=== PATIENT | female | born 1990 | race Native Hawaiian/Other Pacific Islander ===

== ENCOUNTER 2017-03-19 20:51 | Observation (INO) | payer OTHER ==
[2017-03-19 22:01] LABS: Appearance,Urine Cloudy (Clear); Bacteria,Urine Moderate /hpf; Bilirubin,Urine Negative (Negative); Blood,Urine Large (Negative); Color,Urine Light Red; Glucose,Urine (UA) Negative (Negative); Ketones,Urine 1+ (Negative); Leukocyte Esterase,Urine Negative (Negative); Mucus,Urine Many /hpf; Nitrite,Urine Negative (Negative); Protein,Urine 1+ (Negative); RBC,Urine >182 /hpf (0-5); Specific Gravity,Urine 1.026 (1.001-1.035); Squamous Epithelial Cell,Urine 12 /hpf (0-4); WBC,Urine 22 /hpf (0-5)
[2017-03-19 22:39] LABS: Basophils % (A) 0 %; Eosinophils # (A) 0.3 k/uL (0-0.7); Eosinophils % (A) 3 %; HGB 13.2 gm/dL (11.4-16.0); Lymphocytes # (A) 1.8 k/uL (1.0-4.8); Lymphocytes % (A) 22 %; MCHC 30.7 g/dL (31.0-37.0); MCV 94.4 fL (80.0-100.0); Mean Platelet Volume 7.7; Monocytes # (A) 0.4 k/uL (0-1.0); Monocytes % (A) 5 %; Neutrophils # (A) 5.8 k/uL (1.3-7.7); Neutrophils % (A) 69 %; Platelet Count 246 k/uL (150-450); RBC 4.56 m/uL (3.80-5.40); RDW 14.6 % (11.5-15.5); WBC 8.4 k/uL (3.8-10.6)
--- NOTE | 2017-03-19 23:10 | US ---
EXAMINATION TYPE: US OB <= 14 wk fetus DATE OF EXAM: 03/19/2017 COMPARISON: NONE CLINICAL HISTORY: vaginal bleeding. Pt states vaginal bleeding x 3 weeks, + test in ER EXAM PERFORMED: Transvaginal (TV) and Transabdominal (TA) EXAM MEASUREMENTS: GESTATIONAL AGE / DATING Physician Established: Not established Dates by LMP: (2 weeks/3 days) EDC: 12/07/2017 Dates by First Scan: no prior Dates by Current Scan: Possible 6wk 2day left ectopic MATERNAL ANATOMY Uterus: 7.2 x 5.2 x 5.3 cm Right Ovary: 3.6 x 1.9 x 3.5 cm Left Ovary: 3.0 x 1.9 x 2.8 cm Post CDS / Adnexa: Solid, vascular mass within left adnexa adjacent to left ovary= 3.0 x 1.7 x 2.0 cm / possible pole visualized, no cardiac activity Presence of free fluid: No Beta HcG (if available): Not available at this time IMPRESSION: Empty uterus. There is a complex mass in the left adnexa is probably a gestational sac with pole. There is no cardiac activity and this is consistent with demise at approximately 6 weeks 2 days gestation of an ectopic . The pole measures 5 mm.
--- NOTE | 2017-03-19 23:14 | ED ---
General Adult HPI - General Chief complaint: Vaginal Bleeding Stated complaint: Female Time Seen by Provider: 03/19/17 21:16 Source: patient Mode of arrival: ambulatory Limitations: no limitations - History of Present Illness Initial comments: Parrish is a female who presents to the ED today for evaluation of vaginal bleeding. Sharon reports that she had her normal period in January. In February she started her period on March 01. She reports that since that time she's experienced daily vaginal bleeding. She reports that she is using 2-3 tampons or pads per day and experiencing dark vaginal bleeding. She reports that the bleeding is similar in character to a. However it has persisted for nearly 3 weeks at this point. She reports a prior to this she was had regular periods lasting 4-7 days. She does report that her mother has a history of irregular periods and subsequently had to have a hysterectomy in her early 30s. Patient reports that she last saw her integrated specialist in October at which time she had a normal exam and was given a good bill of health. Patient does report that she is sexually active, she reports that she is in a monogamous relationship, the usually use condoms for control but she does admit to occasionally feeling to use any type of protection. At this time she does report that there is a possibility that she is . Patient states that her blood type is O+. She states that she is certain of this because she was recently looking of her previous medical record because her uncle is in need of a kidney transplant his blood type is O- and she was not compatible. She also reports she never received program and previous pregnancies. - Related Data Home Medications Medication Instructions Recorded Confirmed Naproxen Sodium [Midol] 220 mg PO Q12HR PRN 03/19/17 03/19/17 Allergies Allergy/AdvReac Type Severity Reaction Status Date / Time No Known Allergies Allergy Verified 03/19/17 21:16 Review of Systems ROS Statement: Those systems with pertinent positive or pertinent negative responses have been documented in the HPI. ROS Other: All systems not noted in ROS Statement are negative. Constitutional: Reports: fever Genitourinary: Reports: abnormal menses. Denies: dysuria, hematuria, discharge Neurological: Denies: headache, weakness Hematological/Lymphatic: Denies: easy bleeding, easy bruising Past Medical History Past Medical History: No Reported History Additional Past Medical History / Comment(s): Scoliosis, miscarriage 2012. History of Any Multi-Drug Resistant Organisms: None Reported Past Surgical History: Section Past Psychological History: No Psychological Hx Reported Smoking Status: Current every day smoker Past Alcohol Use History: Occasional Past Drug Use History: None Reported General Exam Limitations: no limitations General appearance: alert, in no apparent distress Head exam: Present: atraumatic, normocephalic Eye exam: Present: normal appearance, PERRL ENT exam: Present: normal exam Neck exam: Present: normal inspection Respiratory exam: Absent: respiratory distress Cardiovascular Exam: Present: regular rate, normal rhythm GI/Abdominal exam: Present: soft. Absent: distended Rectal exam: Present: deferred External exam: Present: normal external exam Speculum exam: Present: vaginal bleeding. Absent: tissue, laceration By manual exam: Present: normal by manual exam. Absent: cervical motion tenderness, adnexal tenderness, adnexal mass, uterine enlargement, uterine tenderness Extremities exam: Present: normal inspection Back exam: Present: normal inspection Neurological exam: Present: alert, oriented X3 Psychiatric exam: Present: normal affect, normal mood Skin exam: Present: warm, dry, normal color Course Vital Signs 03/19/17 03/19/17 20:53 22:42 Temperature 97.2 F L 98.5 F Pulse Rate 81 72 Respiratory 16 18 Rate Blood Pressure 139/80 142/80 O2 Sat by Pulse 100 100 Oximetry Medical Decision Making - Medical Decision Making Patient was seen and evaluated. Patient with nearly 3 weeks of continuous vaginal bleeding, no lightheadedness, no tachycardia. Bleeding is minimal using 2-4 pads per day. Patient has no history of menstrual irregularities however her mother does. Patiently not currently using any type of control, there is concern that she could be Urinalysis and urine ordered Urinalysis reveals gross hematuria, likely contamination as well as a positive test CBC and beta hCG were ordered Pelvic ultrasound ordered Pelvic US reveals a left adnexal ectopic with no heart beat - patient was advised - findings discussed with OB on-call who recommended the patient be placed in observation, nothing by mouth at midnight, repeat morning labs. Orderd were placed - Lab Data Result diagrams: 03/19/17 22:31 Lab Results 03/19/17 03/19/17 03/19/17 Range/Units 20:16 20:16 22:31 WBC 8.4 (3.8-10.6) k/uL RBC 4.56 (3.80-5.40) m/uL Hgb 13.2 (11.4-16.0) gm/dL Hct 43.0 (34.0-46.0) % MCV 94.4 (80.0-100.0) fL MCH 29.0 (25.0-35.0) pg MCHC 30.7 L (31.0-37.0) g/dL RDW 14.6 (11.5-15.5) % Plt Count 246 (150-450) k/uL Neutrophils % 69 % Lymphocytes % 22 % Monocytes % 5 % Eosinophils % 3 % Basophils % 0 % Neutrophils # 5.8 (1.3-7.7) k/uL Lymphocytes # 1.8 (1.0-4.8) k/uL Monocytes # 0.4 (0-1.0) k/uL Eosinophils # 0.3 (0-0.7) k/uL Basophils # 0.0 (0-0.2) k/uL HCG, Quant mIU/mL Urine Color Light Red Urine Appearance Cloudy H (Clear) Urine pH 6.0 (5.0-8.0) Ur Specific [place] 1.026 (1.001-1.035) Urine Protein 1+ H (Negative) Urine Glucose (UA) Negative (Negative) Urine Ketones 1+ H (Negative) Urine Blood Large H (Negative) Urine Nitrite Negative (Negative) Urine Bilirubin Negative (Negative) Urine Urobilinogen 2.0 (<2.0) mg/dL Ur Leukocyte Esterase Negative (Negative) Urine RBC >182 H (0-5) /hpf Urine WBC 22 H (0-5) /hpf Ur Squamous Epith Cells 12 H (0-4) /hpf Urine Bacteria Moderate H (None) /hpf Urine Mucus Many H (None) /hpf Urine HCG, Qual Detected (Not Detectd) 03/19/17 Range/Units 22:31 WBC (3.8-10.6) k/uL RBC (3.80-5.40) m/uL Hgb (11.4-16.0) gm/dL Hct (34.0-46.0) % MCV (80.0-100.0) fL MCH (25.0-35.0) pg MCHC (31.0-37.0) g/dL RDW (11.5-15.5) % Plt Count (150-450) k/uL Neutrophils % % Lymphocytes % % Monocytes % % Eosinophils % % Basophils % % Neutrophils # (1.3-7.7) k/uL Lymphocytes # (1.0-4.8) k/uL Monocytes # (0-1.0) k/uL Eosinophils # (0-0.7) k/uL Basophils # (0-0.2) k/uL HCG, Quant 267.1 mIU/mL Urine Color Urine Appearance (Clear) Urine pH (5.0-8.0) Ur Specific [place] (1.001-1.035) Urine Protein (Negative) Urine Glucose (UA) (Negative) Urine Ketones (Negative) Urine Blood (Negative) Urine Nitrite (Negative) Urine Bilirubin (Negative) Urine Urobilinogen (<2.0) mg/dL Ur Leukocyte Esterase (Negative) Urine RBC (0-5) /hpf Urine WBC (0-5) /hpf Ur Squamous Epith Cells (0-4) /hpf Urine Bacteria (None) /hpf Urine Mucus (None) /hpf Urine HCG, Qual (Not Detectd) Disposition Clinical Impression: Ectopic of ovary Disposition: ADMITTED IP TO THIS [facility] Condition: Good Referrals: None,Stated [Primary Care Provider] - 1-2 days Decision Date: 03/19/17 Decision Time: 23:36
[2017-03-19] MEDS ORDERED: NALOXONE 0.4 MG/ML 1 ML VIAL IV PRN (23:32)
[2017-03-20] MEDS: SODIUM CHLORIDE 0.9% 1,000 ML IV SCH ×2 (00:26→06:01)
[2017-03-20 01:09] LABS: ALT 44 U/L (9-52); AST 20 U/L (14-36); Albumin 4.1 g/dL (3.5-5.0); Alkaline Phosphatase 74 U/L (38-126); Anion Gap 12 mmol/L; Blood Urea Nitrogen 12 mg/dL (7-17); Calcium 9.6 mg/dL (8.4-10.2); Carbon Dioxide 22 mmol/L (22-30); Chloride 105 mmol/L (98-107); Glucose 100 mg/dL (74-99); Potassium 3.9 mmol/L (3.5-5.1); Sodium 139 mmol/L (137-145); Total Bilirubin 0.3 mg/dL (0.2-1.3); Total Protein 6.9 g/dL (6.3-8.2)
[2017-03-20] MEDS: ACETAMINOPHEN TAB 325 MG TAB PO PRN ×2 (01:56→07:07)
[2017-03-20 06:03] LABS: Anion Gap 8 mmol/L; Blood Urea Nitrogen 13 mg/dL (7-17); Calcium 9.2 mg/dL (8.4-10.2); Carbon Dioxide 25 mmol/L (22-30); Chloride 106 mmol/L (98-107); Glucose 87 mg/dL (74-99); INR 1.1 (<1.2); Partial Thromboplastin Time 25.1 sec (22.0-30.0); Potassium 3.8 mmol/L (3.5-5.1); Prothrombin Time 10.5 sec (9.0-12.0); Sodium 139 mmol/L (137-145)
[2017-03-20 06:09] LABS: Basophils % (A) 0 %; Eosinophils # (A) 0.2 k/uL (0-0.7); Eosinophils % (A) 3 %; HCT 37.9 % (34.0-46.0); HGB 12.3 gm/dL (11.4-16.0); Lymphocytes # (A) 2.4 k/uL (1.0-4.8); Lymphocytes % (A) 32 %; MCH 29.8 pg (25.0-35.0); MCHC 32.4 g/dL (31.0-37.0); MCV 91.9 fL (80.0-100.0); Monocytes # (A) 0.3 k/uL (0-1.0); Monocytes % (A) 4 %; Neutrophils # (A) 4.5 k/uL (1.3-7.7); Neutrophils % (A) 60 %; Platelet Count 226 k/uL (150-450); RBC 4.12 m/uL (3.80-5.40); WBC 7.5 k/uL (3.8-10.6)
[2017-03-20] MEDS ORDERED: METHOTREXATE SODIUM (PF) 25 MG/ML 2 ML VIAL IV ONE (08:31)
--- NOTE | 2017-03-20 08:31 | P.HPOB ---
History of Present Illness H&P Date: 03/20/17 Chief Complaint: Vaginal bleeding This is a 26-year-old 3 para 1011 woman with an LMP of 03/01/2017 who presents with several weeks of ongoing vaginal bleeding. She was found in the emergency room to have a positive test. Imaging reveals a 0.0 x 1.7 x 2.0 cm left adnexal mass adjacent to the left ovary consistent with an ectopic . There is no free fluid in the pelvis. Beta hCG is 267. Her blood type is O+. She complains of some ongoing bilateral lower abdominal cramping. She has no bowel or bladder complaints. Her bleeding she describes as a light to moderate. Flow without clot or debris. This morning she reports feeling hungry and is having some mild lower abdominal cramping. Her obstetrical history is significant for a primary low transverse section in 2013 and a spontaneous miscarriage of twins at approximately 20 weeks in 2011. She is not currently using anything for contraception. Her periods are typically regular every 30 days and last 5-7 days. Review of Systems Constitutional: Denies anorexia, Denies chills, Denies fever Cardiovascular: Denies chest pain, Denies shortness of breath, Denies syncope Respiratory: Denies cough Gastrointestinal: Reports abdominal pain, Denies change in bowel habits, Denies constipation, Denies nausea, Denies vomiting Genitourinary: Reports abnormal vaginal bleeding, Reports , Denies hematuria Menstruation: Reports as per HPI Musculoskeletal: Reports low back pain Integumentary: Denies rash Neurological: Denies headaches Psychiatric: Denies anxiety, Denies depression Hematologic/Lymphatic: Denies easy bleeding, Denies easy bruising Past Medical History Past Medical History: No Reported History Additional Past Medical History / Comment(s): Scoliosis, miscarriage 2011. Thyroid nodules History of Any Multi-Drug Resistant Organisms: None Reported Past Surgical History: Section Past Anesthesia/Blood Transfusion Reactions: No Reported Reaction Past Psychological History: No Psychological Hx Reported Smoking Status: Current every day smoker Past Alcohol Use History: Occasional Past Drug Use History: None Reported - Past Family History Mother Family Medical History: No Reported History Medications and Allergies Home Medications Medication Instructions Recorded Confirmed Type Naproxen Sodium [Midol] 220 mg PO Q12HR PRN 03/19/17 03/19/17 History Allergies Allergy/AdvReac Type Severity Reaction Status Date / Time No Known Allergies Allergy Verified 03/20/17 00:52 Exam - Vital Signs Vital signs: Vital Signs Temp Pulse Pulse Resp BP BP Pulse Ox 03/20/17 07:43 98.1 F 75 17 109/64 98 03/20/17 05:05 98.3 F 66 16 102/63 98 03/20/17 00:53 97.8 F 68 16 111/69 100 03/20/17 00:50 97.8 F 68 16 111/69 100 03/20/17 00:00 97.6 F 73 16 124/73 100 03/19/17 22:42 98.5 F 72 18 142/80 100 03/19/17 20:53 97.2 F L 81 16 139/80 100 Intake and Output 03/19/17 03/20/17 03/20/17 22:59 06:59 14:59 Other: # Voids 1 Weight 91.626 kg 91.626 kg 's a pleasant, comfortable appearing female. HE in T exam is unremarkable with no palpable thyromegaly. The lungs are clear to auscultation bilaterally and the heart is of regular rate and rhythm. The abdomen is soft with mild generalized lower abdominal tenderness. There is no rebound, no guarding and no flank pain. Pelvic examination is deferred as this was recently performed in the emergency room. She has scant vaginal bleeding on her period pad. No gross neurologic deficits noted. Results Result Diagrams: 03/20/17 05:33 03/20/17 05:33 Abnormal Lab Results - Last 24 Hours (Table) 03/19/17 03/19/17 03/20/17 Range/Units 20:16 22:31 00:20 MCHC 30.7 L (31.0-37.0) g/dL Glucose 100 H (74-99) mg/dL Urine Appearance Cloudy H (Clear) Urine Protein 1+ H (Negative) Urine Ketones 1+ H (Negative) Urine Blood Large H (Negative) Urine RBC >182 H (0-5) /hpf Urine WBC 22 H (0-5) /hpf Ur Squamous Epith Cells 12 H (0-4) /hpf Urine Bacteria Moderate H (None) /hpf Urine Mucus Many H (None) /hpf Assessment and Plan (1) Ectopic of ovary Current Visit: Yes Status: Acute Code(s): O00.209 - UNSPECIFIED OVARIAN WITHOUT INTRAUTERINE SNOMED Code(s): 4381478 Plan: This is a 26-year-old 3 para 1011 woman with a small left ectopic . Beta hCG is less than 300. She is hemodynamically stable. I have discussed options with her in detail including the surgical versus medical management. She would like to try methotrexate for conservative treatment of the ectopic and I believe she is a good candidate for this. We discussed the importance of follow-up and need for regular laboratory monitoring to assure resolution. We reviewed ectopic precautions including follow-up in the emergency room with any development of severe abdominal pain or heavy vaginal bleeding or lightheadedness. Her blood type is O+. She will receive methotrexate per protocol and be discharged home to close follow-up.
[2017-03-20] MEDS ORDERED: METHOTREXATE SODIUM (PF) 25 MG/ML 2 ML VIAL IM ONE ×2 (09:30)
[2017-03-21 22:54] VITALS: BP 105/58; PULSE 78; TEMP 98.2
[2017-03-21 22:56] VITALS: RESP 18
== END 2017-03-20 09:45 | disposition home or self-care (01) ==
LOC: EC 20:51 → 4FBP 23:33
PROVIDERS: ADMIT Obstetrics & Gynecology; ATTEND Obstetrics & Gynecology
DX: O00.202 Left ovarian pregnancy without intrauterine pregnancy (principal); O99.330 Smoking (tobacco) complicating pregnancy, unspecified trimester; F17.200 Nicotine dependence, unspecified, uncomplicated; Z3A.00 Weeks of gestation of pregnancy not specified
CPT/HCPCS: 99285 ×2; 96360; 96361; 96372; 36415; 86900; 86901; 80053; 80048; 85025 ×2; 85610; 85730; 81001; 81025; 84702; 76801; 76817; G0378 ×2; J9260

== ENCOUNTER → 2017-03-29 | Outpatient (CLI) | payer OTHER ==
[2017-03-29 15:12] LABS: Basophils % (A) 0 %; Eosinophils # (A) 0.2 k/uL (0-0.7); Eosinophils % (A) 3 %; HCT 42.4 % (34.0-46.0); HGB 13.7 gm/dL (11.4-16.0); Lymphocytes # (A) 1.9 k/uL (1.0-4.8); Lymphocytes % (A) 32 %; MCH 29.9 pg (25.0-35.0); MCHC 32.3 g/dL (31.0-37.0); MCV 92.8 fL (80.0-100.0); Monocytes # (A) 0.3 k/uL (0-1.0); Monocytes % (A) 5 %; Neutrophils # (A) 3.5 k/uL (1.3-7.7); Neutrophils % (A) 59 %; Platelet Count 262 k/uL (150-450); RBC 4.57 m/uL (3.80-5.40); RDW 13.3 % (11.5-15.5)
[2017-03-29 15:24] LABS: ALT 32 U/L (9-52); AST 12 U/L (14-36); Alkaline Phosphatase 66 U/L (38-126); Anion Gap 11 mmol/L; Blood Urea Nitrogen 11 mg/dL (7-17); Calcium 9.5 mg/dL (8.4-10.2); Carbon Dioxide 25 mmol/L (22-30); Chloride 105 mmol/L (98-107); Glucose 98 mg/dL (74-99); Potassium 4.1 mmol/L (3.5-5.1); Sodium 141 mmol/L (137-145); Total Bilirubin 0.4 mg/dL (0.2-1.3); Total Protein 6.4 g/dL (6.3-8.2)
[2017-03-29 15:39] LABS: HCG,Quantitative Serum 79.8 mIU/mL
== END | disposition home or self-care (01) ==
LOC: LABWHC1 14:27
PROVIDERS: ATTEND Obstetrics & Gynecology
DX: O00.90 Unspecified ectopic pregnancy without intrauterine pregnancy (principal); Z3A.00 Weeks of gestation of pregnancy not specified
CPT/HCPCS: 36415; 80053; 84702; 85025

== ENCOUNTER → 2017-04-17 | Outpatient (CLI) | payer OTHER | END | disposition home or self-care (01) | LOC: LABWHC1 13:07 | PROVIDERS: ATTEND Obstetrics & Gynecology | DX: O00.01 Abdominal pregnancy with intrauterine pregnancy (principal) | CPT/HCPCS: 36415; 84702 ==

== ENCOUNTER 2018-07-22 09:17 | Emergency (ER) | payer OTHER ==
[2018-07-22 09:26] VITALS: BP 115/72; PULSE 86; RESP 16; TEMP 98.5
[2018-07-22] MEDS ORDERED: ACET/COD 300 MG/30 MG STARTER PACK 6 TAB BTL PO STA (10:13)
--- NOTE | 2018-07-22 10:13 | ED ---
Extremity Problem HPI - General Chief complaint: Extremity Problem,Nontraumatic Stated complaint: swelling of hands Time Seen by Provider: 07/22/18 09:33 Source: patient, RN notes reviewed Mode of arrival: ambulatory Limitations: no limitations - History of Present Illness Initial comments: 28-year-old female presents emergency Department with chief complaint of bilateral hand pain, swelling. She states is intermittent. He states it's much worse when she goes to work. 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 Patient states it's very rapid edition sicknesses when she notices the symptoms. Patient is right-hand dominant. Patient states this has been going on for 1 month when she started this job. Denies any current paresthesias below she does have some at time pain is worse in her digits 2-3. Patient denies any chest pain or shortness breath no focal weakness. - Related Data Previous Rx's Medication Instructions Recorded predniSONE 50 mg PO DAILY #5 tab 07/22/18 Allergies Allergy/AdvReac Type Severity Reaction Status Date / Time No Known Allergies Allergy Verified 07/22/18 09:42 Review of Systems ROS Statement: Those systems with pertinent positive or pertinent negative responses have been documented in the HPI. ROS Other: All systems not noted in ROS Statement are negative. Past Medical History Past Medical History: No Reported History Additional Past Medical History / Comment(s): Scoliosis, Thyroid nodules History of Any Multi-Drug Resistant Organisms: None Reported Past Surgical History: Section Past Anesthesia/Blood Transfusion Reactions: No Reported Reaction Past Psychological History: No Psychological Hx Reported Smoking Status: Current every day smoker Past Alcohol Use History: Occasional Past Drug Use History: None Reported - Past Family History Mother Family Medical History: No Reported History General Exam Limitations: no limitations General appearance: alert, in no apparent distress Head exam: Present: atraumatic, normocephalic, normal inspection Eye exam: Present: normal appearance, PERRL, EOMI. Absent: scleral icterus, conjunctival injection, periorbital swelling ENT exam: Present: normal exam, normal oropharynx, mucous membranes moist, TM's normal bilaterally, normal external ear exam Neck exam: Present: normal inspection, full ROM. Absent: tenderness, meningismus, lymphadenopathy Respiratory exam: Present: normal lung sounds bilaterally. Absent: respiratory distress, wheezes, rales, rhonchi, stridor Cardiovascular Exam: Present: regular rate, normal rhythm, normal heart sounds. Absent: systolic murmur, diastolic murmur, rubs, gallop, clicks Extremities exam: Present: other (Positive Tinel's and Phalen's bilaterally, neurovascular intact radial pulses equal bilaterally there is no notable swelling or erythema. Insurance Verification Clerk strength equal bilaterally 5/5) Course Vital Signs 07/22/18 09:22 Temperature 98.5 F Pulse Rate 86 Respiratory 16 Rate Blood Pressure 115/72 O2 Sat by Pulse 99 Oximetry Medical Decision Making - Medical Decision Making 28-year-old female presents emergency Department with chief complaint of bilateral hand pain. Patient has carpal tunnel symptoms. Patient will be given prednisone as she's tried some anti-inflammatory and [, codeine. She'll be advised pear picker cockup splints and follow-up with orthopedics as needed. Disposition Clinical Impression: Carpal tunnel syndrome Disposition: HOME SELF-CARE Condition: Stable Instructions (If sedation given, give patient instructions): Tendinitis (ED) Additional Instructions: Please return to the Emergency Department if symptoms worsen or any other concerns. Prescriptions: predniSONE 50 mg PO DAILY #5 tab Is patient prescribed a controlled substance at d/c from ED?: No Referrals: None,Stated [Primary Care Provider] - 1-2 days Gutierrez Lockhart DO [Medical Doctor] - 1-2 days Time of Disposition: 10:13
== END 2018-07-22 10:25 | disposition home or self-care (01) ==
LOC: EC 09:17
DX: G56.03 Carpal tunnel syndrome, bilateral upper limbs (principal); F17.200 Nicotine dependence, unspecified, uncomplicated
CPT/HCPCS: 99283

== ENCOUNTER 2022-11-07 05:23 | Emergency (ER) | payer OTHER ==
[2022-11-07] MEDS ORDERED: KETOROLAC 15 MG/ML 1 ML VIAL IM STA (06:11)
[2022-11-07] MEDS ORDERED: methocarbamoL 750 MG TAB PO STA (06:12)
--- NOTE | 2022-11-07 06:23 | ED ---
Back Pain HPI - General Chief Complaint: Back Pain/Injury Stated Complaint: Kidney Pain Time Seen by Provider: 11/07/22 05:57 Source: patient, RN notes reviewed Limitations: no limitations - History of Present Illness Initial Comments: This is a 32-year-old female who presents to the emergency department for back pain. Patient is concerned that she has pain in her "kidney". She has had intermittent sharp pain to the right lower back over the last 2 weeks. Pain is worse with movement. Pain does not radiate into the abdomen and she denies any nausea or vomiting. She does have a history of kidney stones, but states that this feels different, in that it is less severe and she is not experiencing any urinary symptoms. She has not tried taking anything for her pain. Denies any loss of bowel/bladder control or saddle anesthesia. Denies any fevers, chills, sore throat, cough, dyspnea, chest pain, palpitations, abdominal pain, nausea, vomiting, diarrhea, or headaches. MD Complaint: back pain Onset/Timin -: week(s) - Related Data Previous Rx's Medication Instructions Recorded predniSONE 50 mg PO DAILY #5 tab 07/22/18 Lidocaine 5% Patch [Lidoderm 5% 1 patch TOPICAL DAILY PRN #30 patch 11/07/22 Patch] methocarbamoL [Robaxin-750] 1,500 mg PO QID PRN #30 tab 11/07/22 predniSONE 50 mg PO DAILY 5 Days #5 tab 11/07/22 Allergies Allergy/AdvReac Type Severity Reaction Status Date / Time No Known Allergies Allergy Verified 11/07/22 05:30 Review of Systems ROS Statement: Those systems with pertinent positive or pertinent negative responses have been documented in the HPI. ROS Other: All systems not noted in ROS Statement are negative. Past Medical History Past Medical History: No Reported History Additional Past Medical History / Comment(s): Scoliosis, Thyroid nodules History of Any Multi-Drug Resistant Organisms: None Reported Past Surgical History: Section Past Anesthesia/Blood Transfusion Reactions: No Reported Reaction Past Psychological History: Anxiety, Depression Smoking Status: Current every day smoker Past Alcohol Use History: Occasional Past Drug Use History: None Reported - Past Family History Mother Family Medical History: No Reported History General Exam Limitations: no limitations General appearance: alert, in no apparent distress Head exam: Present: atraumatic, normocephalic, normal inspection Respiratory exam: Present: normal lung sounds bilaterally. Absent: respiratory distress, wheezes, rales, rhonchi, stridor Cardiovascular Exam: Present: regular rate, normal rhythm, normal heart sounds. Absent: systolic murmur, diastolic murmur, rubs, gallop, clicks GI/Abdominal exam: Present: soft, normal bowel sounds. Absent: distended, tenderness, guarding, rebound, rigid Back exam: Absent: CVA tenderness (R), CVA tenderness (L) Neurological exam: Present: alert, oriented X3, CN II-XII intact Psychiatric exam: Present: normal affect, normal mood Skin exam: Present: warm, dry, intact, normal color. Absent: rash Course Vital Signs 11/07/22 05:28 Temperature 98.8 F Pulse Rate 82 Respiratory 18 Rate Blood Pressure 123/83 O2 Sat by Pulse 100 Oximetry Medical Decision Making - Medical Decision Making This is a 32-year-old female who presents to the emergency department for back pain. Was pt. sent in by a medical professional or institution? @ -No Did you speak to anyone other than the patient for history? @ -No Did you review nursing and triage notes? @ -Yes, and I agree, it is accurate with regards to the patient's symptoms. Were old charts reviewed? @ -No Differential Diagnosis? @ -Differential Back Pain: Strain, zoster, cauda equina syndrome, epidural abscess, vertebral osteomyelitis, discitis, fracture, subluxation, disc herniation, DJD, spinal stenosis, dissection, AAA, pancreatitis, peptic ulcer disease, pyelonephritis, kidney stone, this is not meant to be an all-inclusive list. EKG interpreted by me (3pts min.)? @ -Not obtained X-rays interpreted by me (1pt min.)? @ -Not obtained CT interpreted by me (1pt min.)? @ -Not obtained U/S interpreted by me (1pt. min.)? @ -Not obtained What testing was considered but not performed? (CT, X-rays, U/S, labs)? Why? @ -Consideration of a lumbar spine x-ray, however given that there was no injury, this was deferred. What meds were considered but not given? Why? @ -None Did you discuss the management of the patient with other professionals? @ -No Did you reconcile home meds? @ -No Was smoking cessation discussed for >3mins.? @ -No Was critical care preformed (if so, how long)? @ -No Were there social determinants of health that impacted care today? How? (Homelessness, low income, unemployed, alcoholism, drug addiction, transportation, low edu. Level, literacy, decrease access to med. care, fpc, rehab)? @ -No Was there de-escalation of care discussed even if they declined? (Discuss DNR or withdrawal of care, Hospice)? @ -No What co-morbidities impacted this encounter? (DM, HTN, Smoking, COPD, CAD, Cancer, CVA, Hep., AIDS, mental health diagnosis, sleep apnea, morbid obesity)? @ -Morbid obesity Was patient admitted / discharged? @ -Discharged. Urinalysis negative for signs of infection. Given the location of her pain and with a negative UA, this is more suspicious for a musculoskeletal process than something to do with her kidneys, as she had thought. She was treated with Toradol, Robaxin, and a lidocaine patch, with significant relief in symptoms. Prescription for 5 day course of prednisone, Robaxin, and lidocaine patches provided with dosing instructions reviewed. Advised that the Robaxin is sedating and she should avoid driving or operating machinery when taking this. She is otherwise advised to follow up with her PCP for reevaluation. Undiagnosed new problem with uncertain prognosis? @ -None Drug Therapy requiring intensive monitoring for toxicity (Heparin, Nitro, Insulin, Cardizem)? @ -None Were any procedures done? @ -None Diagnosis/symptom? @ -Lumbar strain Acute, or Chronic, or Acute on Chronic? @ -Acute Uncomplicated (without systemic symptoms) or Complicated (systemic symptoms)? @ -Uncomplicated Side effects of treatment? @ -None Exacerbation, Progression, or Severe Exacerbation] @ -Not applicable Poses a threat to life or bodily function? @ -No Return precautions reviewed in depth, the patient is instructed to return to the emergency department with any new, worsening, or concerning symptoms. Patient verbalized understanding. This case was discussed in detail with the attending ED physician, Dr. Maya. Presentation, findings, and treatment plan discussed in detail as well. - Lab Data Lab Results 11/07/22 11/07/22 Range/Units 06:27 06:27 Urine Color Yellow Urine Appearance Clear (Clear) Urine pH 5.5 (5.0-8.0) Ur Specific [place] 1.028 (1.001-1.035) Urine Protein Negative (Negative) Urine Glucose (UA) Negative (Negative) Urine Ketones Negative (Negative) Urine Blood Negative (Negative) Urine Nitrite Negative (Negative) Urine Bilirubin Negative (Negative) Urine Urobilinogen <2.0 (<2.0) mg/dL Ur Leukocyte Esterase Negative (Negative) Urine HCG, Qual Not Detected (Not Detectd) Disposition Clinical Impression: Strain of lumbar region Disposition: HOME SELF-CARE Instructions (If sedation given, give patient instructions): Acute Low Back Pain (ED) Additional Instructions: Return to the emergency department with any new, worsening, or concerning symptoms. Take the prednisone daily for 5 days. You can take the muscle relaxant up to 4 times daily. Be aware that this may make you drowsy and you should avoid driving or operating machinery when taking this. You can also apply the lidocaine patches daily. Follow up with your primary care provider in 1-2 days. Prescriptions: Lidocaine 5% Patch [Lidoderm 5% Patch] 1 patch TOPICAL DAILY PRN #30 patch PRN Reason: Pain predniSONE 50 mg PO DAILY 5 Days #5 tab methocarbamoL [Robaxin-750] 1,500 mg PO QID PRN #30 tab PRN Reason: Pain Is patient prescribed a controlled substance at d/c from ED?: No Referrals: None,Stated [Primary Care Provider] - 1-2 days
[2022-11-07 06:52] LABS: Appearance,Urine Clear (Clear); Bilirubin,Urine Negative (Negative); Blood,Urine Negative (Negative); Color,Urine Yellow; Glucose,Urine (UA) Negative (Negative); Ketones,Urine Negative (Negative); Leukocyte Esterase,Urine Negative (Negative); Nitrite,Urine Negative (Negative); PH, Urine 5.5 (5.0-8.0); Protein,Urine Negative (Negative); Specific Gravity,Urine 1.028 (1.001-1.035); Urobilinogen,Urine <2.0 mg/dL (<2.0)
[2022-11-07] MEDS ORDERED: ACET/COD 300 MG/30 MG STARTER PACK 6 TAB BTL PO STA (07:17)
[2022-11-07 07:37] VITALS: BP 116/71; PULSE 58; RESP 14; TEMP 97.9
[2022-11-07] MEDS ORDERED: LIDOCAINE 5% PATCH TOPICAL SCH (09:00)
== END 2022-11-07 07:37 | disposition home or self-care (01) ==
LOC: EC 05:23
DX: S39.012A Strain of muscle, fascia and tendon of lower back, initial encounter (principal); F17.200 Nicotine dependence, unspecified, uncomplicated; Z86.59 Personal history of other mental and behavioral disorders; X58.XXXA Exposure to other specified factors, initial encounter
CPT/HCPCS: 81003; 81025; 99283; 96372; J1885